=== PATIENT | female | born 1970 | race American Indian/Alaskan Native ===

== ENCOUNTER 2017-02-26 15:31 | Outpatient (CLI) | payer BC ==
--- NOTE | 2017-03-03 14:52 | Vascular Lab Report ---
Left Lower Extremity Venous Duplex Study: Reason for Exam: Trauma to left lower extremity. DVT. Comments on the Right: A limited duplex study was done of the proximal veins of the right lower extremity. All veins visualized are freely compressible without evidence of internal echogenicity. Flow is spontaneous and phasic throughout. No evidence of acute or chronic thrombus is seen in any of the vessels visualized. Comments on the Left: All veins visualized are freely compressible without evidence of internal echogenicity. Flow is spontaneous and phasic throughout. No evidence of acute or chronic thrombus is seen in any of the vessels visualized. There are nonspecific soft tissue change in the left knee area. Impression: No evidence of acute or chronic deep venous thrombosis in the left lower extremity.
== END 2017-02-26 16:35 | disposition home or self-care (01) ==
LOC: EDSTATUS 16:12 → VAS 16:34
PROVIDERS: ATTEND Podiatrist Foot Surgery
DX: S89.92XA Unspecified injury of left lower leg, initial encounter (principal); X58.XXXA Exposure to other specified factors, initial encounter; Y93.89 Activity, other specified; Y92.89 Other specified places as the place of occurrence of the external cause; Y99.8 Other external cause status